=== PATIENT | male | born 1935 | race Caucasian/White ===

== ENCOUNTER 2016-12-24 07:33 | Inpatient (IN) | payer OTHER ==
[2016-12-24] MEDS ORDERED: ASPIRIN PO STA (08:23)
--- NOTE | 2016-12-24 09:00 | EKG Report ---
Test Performed on : 12/24/2016 07:39:10 AM Test Reason : Chest Pain Blood Pressure : / mmHG Vent. Rate : 117 BPM Atrial Rate : 117 BPM P-R Int : 146 ms QRS Dur : 090 ms QT Int : 342 ms P-R-T Axes : 028 053 -01 degrees QTc Int : 477 ms Sinus tachycardia. Inferior infarct , age undetermined Abnormal ECG When compared with ECG of 20-JUL-2015 12:23, Sinus rhythm. has replaced Junctional rhythm. QRS duration has increased ST no longer depressed in Anterior leads Unconfirmed Result
--- NOTE | 2016-12-24 09:15 | PROVIDER DOCUMENTATION ---
HPI-Chest Pain - General Chief Complaint: Chest Pain Stated Complaint: cp Time Seen by Provider: 12/24/16 09:04 Source: patient, family Allergies/Adverse Reactions: Patient Allergies Allergy/AdvReac Type Severity Reaction Status Date / Time codeine Allergy Intermediate VOMITING Verified 09/08/16 23:48 Home Medications: Clonazepam [Klonopin] 1 mg PO HS 12/24/16 Dexchlorpheniramin/Pseudoephed [Rescon Tablet] 1 dose PO BID 12/24/16 Ezetimibe/Simvastatin [Vytorin 10-40 mg Tablet] 1 dose PO EVERY OTHER DAY Famotidine [Pepcid] 20 mg PO EVERY OTHER DAY 12/24/16 Filgrastim [Neupogen] 1 dose INJ DIRECTED 12/24/16 Fluoxetine [Prozac] 20 mg PO DAILY 12/24/16 Furosemide [Lasix] 40 mg PO DAILY 12/24/16 Lorazepam 1 mg PO TID PRN 12/24/16 Metoprolol [Lopressor] 25 mg PO DAILY 12/24/16 Potassium Chloride E.r. [Klor-Con] 10 meq PO DAILY 12/24/16 Pregabalin [Lyrica] 150 mg PO BID 12/24/16 Rizatriptan [Maxalt] 10 mg PO PRN PRN 12/24/16 Sitagliptin Phos/Metformin HCl [Janumet 50-500 mg Tablet] 1 dose PO DAILY Zolpidem [Ambien] 10 mg PO HS 12/24/16 - History of Present Illness-CP Nature of Presenting Problem: Reports to er with family at bedside with cc of left sided chest pain upon inspiration x3 days with cough. Reports coughing up blood. reports pt has epistaxis on friday and a squeezing sensation to his head. Reports went to Dr.Jeff De Guzman yesterday had a low grade fever of 99.2 and states CXray showed no acute findings. Reports went to the bathroom this morning and reports that pt was not responding to her and he grabbed ahold of the bar and started to lean. She reports a possible TIA. Pt is on home o2 4lpm at night but family reports past few days he has has low o2 sats during the day. Pt sees for Neutropenia. Hx of bronchitis and pneumonia. Location: reports: other (left) Quality of Pain: reports: aching Severity in ED: moderate Onset/Duration: 3 days ago Timing: still present Nitro Today/Relief: no nitro taken today Aspirin Treatment Today: no aspirin today Similar Symptoms Previously?: No Recently Seen Here or By Another Healthcare Provider: Yes Review of Systems - Adult - REVIEW OF SYSTEMS - ADULT Constitutional: reports: fever. denies: chills, fatique Eyes: reports: no symptoms reported Ears, Nose, Mouth & Throat: reports: see HPI. denies: ear pain, sinus problem, throat pain Cardiovascular: reports: chest pain. denies: irregular heart rate, orthopnea, syncope Respiratory: reports: cough. denies: pleurisy, shortness of breath, wheezing Gastrointestinal: reports: no symptoms reported Genitourinary: reports: no symptoms reported Musculoskeletal: reports: no symptoms reported Integumentary: reports: no symptoms reported Neurological: reports: see HPI Psychiatric: reports: no symptoms reported Endocrine: reports: no symptoms reported Hematologic/Lymphatic: reports: no symptoms reported Allergic/Immunologic: reports: no symptoms reported All Other Systems: Reviewed and Negative Past History - Adult - PAST MEDICAL HISTORY-ADULT Review of Records: reports: Nursing Assessment Review, Medications Reviewed Major Childhood Illnesses: reports: denies history Cardiovascular: reports: HTN Respiratory: reports: denies history Gastrointestinal: reports: denies history Obstetrical/Gynecological: reports: denies history Genitourinary: reports: denies history Musculoskeletal: reports: denies history Neurological: reports: Parkinson's, other (neuropathy) Psychiatric: reports: anxiety Endocrine/Immune: reports: Diabetes, other (neutrapena) Other Conditions: reports: denies history - PRIOR SURGERIES/PROCEDURES Surgical/Procedure History: reports: cholecystectomy, other (TURP) - IMMUNIZATION STATUS Childhood Immunizations: See Nurse Assessment Flu Vaccine: See Nurse Assessment - FAMILY HISTORY Family History: reviewed, not pertinent - SOCIAL HISTORY Smoking: denies Substance Use: none/never Physical Exam-General - PHYSICAL EXAM-ADULT Initial Vital Signs Reviewed: Yes - CONSTITUTIONAL General Appearance: appears well, alert, no apparent distress - EYES Eyes: PERRL/EOMI, pink conjunctivae - HEAD, EARS, NOSE, MOUTH & THROAT HENMT: normocephalic/atraumatic, moist mucous membranes, normal ENT inspection, TMs normal, pharynx normal - NECK Neck: non-tender, full range of motion, supple, normal inspection - RESPIRATORY Respiratory: chest non-tender, decreased breath sounds (right base) - CARDIOVASCULAR Cardiovascular: normal peripheral pulses, regular rate, rhythm, no edema, no gallop, no JVD, no murmur - GASTROINTESTINAL (ABDOMEN) Abdominal Exam: normal bowel sounds, non tender, soft, no organomegaly, no pulsatile mass - LYMPHATIC Lymphatic: no adenopathy - MUSCULOSKELETAL Back Exam: normal inspection, no CVA tenderness, no vertebral tenderness Extremity: normal range of motion, non-tender, normal gait - SKIN Integumentary: normal color, normal turgor, warm/dry - NEUROLOGIC Neurologic: grossly normal, no motor/sensory deficits - PSYCHIATRIC Psych/Mental Status: normal mood/affect, normal thought content, normal thought process, oriented x 3 Progress - PLAN OF CARE/RESULTS Progress/Plan/Lab Results: Orders Category Date Time Status Cardiac Monitoring DIRECTED Care 12/24/16 08:23 Active Oxygen Therapy- ED Nursing DIRECTED Care 12/24/16 08:23 Active Saline Loc NOW Care 12/24/16 08:23 Active CHEST-2 VIEWS [RAD] Stat Exams 12/24/16 08:23 Draft HEAD W/O CONTRAST [CT] Stat Exams 12/24/16 09:41 Ordered BLOOD CULTURE [BLDCUL] Stat Lab 12/24/16 08:15 Received CBC WITH ELECTRONIC DIFF [HEME] Stat Lab 12/24/16 08:10 Completed CK PROFILE [SP CHEM] Stat Lab 12/24/16 08:10 Received COMPREHENSIVE METABOLIC PANEL [CHEM] Stat Lab 12/24/16 08:10 Received D-DIMER [CHEM] Stat Lab 12/24/16 08:10 Received LACTATE, PLASMA [CHEM] Stat Lab 12/24/16 09:39 Received MAGNESIUM [CHEM] Stat Lab 12/24/16 08:10 Received PRO B-NATRIURETIC PEPTIDE Stat Lab 12/24/16 08:10 Received PROTIME WITH INR [COAG] Stat Lab 12/24/16 08:25 Ordered PTT [COAG] Stat Lab 12/24/16 08:25 Ordered TROPONIN T Stat Lab 12/24/16 08:10 Received Aspirin Med 12/24/16 08:23 Discontinued 325 mg PO STAT STA EKG [EKG] Stat Ther 12/24/16 08:23 Draft Vital Signs - 24 hr 12/24/16 12/24/16 12/24/16 07:47 08:26 08:53 Temperature 99.2 F Pulse Rate 117 H 115 H Respiratory 16 18 Rate Blood Pressure 106/74 115/79 O2 Sat by Pulse 89 L 97 95 Oximetry Laboratory Tests 12/24/16 08:10 WBC 22.26 H RBC 4.70 Hgb 13.9 L Hct 42.0 MCV 89.4 MCH 29.6 MCHC 33.1 RDW Std Deviation 14.9 H Plt Count 108 L MPV 12.7 H Immature Gran % (Auto) 2.0 H Neut % (Auto) 42.3 Lymph % (Auto) 10.1 L Irwin % (Auto) 45.4 H Eos % (Auto) 0.1 Baso % (Auto) 0.1 Immature Gran # (Auto) 0.44 H Neut # (Auto) 9.41 H Lymph # (Auto) 2.25 Irwin # (Auto) 10.10 H Eos # (Auto) 0.03 Baso # (Auto) 0.03 Laboratory Tests 12/24/16 12/24/16 12/24/16 08:10 08:10 08:10 WBC 22.26 H RBC 4.70 Hgb 13.9 L Hct 42.0 MCV 89.4 MCH 29.6 MCHC 33.1 RDW Std Deviation 14.9 H Plt Count 108 L MPV 12.7 H Immature Gran % (Auto) 2.0 H Neut % (Auto) 42.3 Lymph % (Auto) 10.1 L Irwin % (Auto) 45.4 H Eos % (Auto) 0.1 Baso % (Auto) 0.1 Immature Gran # (Auto) 0.44 H Neut # (Auto) 9.41 H Lymph # (Auto) 2.25 Irwin # (Auto) 10.10 H Eos # (Auto) 0.03 Baso # (Auto) 0.03 PT INR PTT (Actin FS) D-Dimer 2.80 H Sodium 138 Potassium 4.3 Chloride 98 Carbon Dioxide 23 L Anion Gap 17 BUN 13 Creatinine 1.5 H Estimated GFR/1.73 m2 45 BUN/Creatinine Ratio 9 Glucose 112 H Calculated Osmolality 277 Calcium 8.7 L Magnesium 1.6 Total Bilirubin 0.73 AST 15 ALT 9 L Alkaline Phosphatase 95 Creatine Kinase 39 Troponin T Rsf-E-Gdgthwilivf Pept Total Protein 8.0 Albumin 3.9 Globulin 4.1 Albumin/Globulin Ratio 1.0 Plasma Lactate 01/24/17 01/24/17 01/24/17 08:10 08:10 08:25 WBC RBC Hgb Hct MCV MCH MCHC RDW Std Deviation Plt Count MPV Immature Gran % (Auto) Neut % (Auto) Lymph % (Auto) Irwin % (Auto) Eos % (Auto) Baso % (Auto) Immature Gran # (Auto) Neut # (Auto) Lymph # (Auto) Irwin # (Auto) Eos # (Auto) Baso # (Auto) PT 12.0 H INR 1.13 PTT (Actin FS) 33.5 D-Dimer Sodium Potassium Chloride Carbon Dioxide Anion Gap BUN Creatinine Estimated GFR/1.73 m2 BUN/Creatinine Ratio Glucose Calculated Osmolality Calcium Magnesium Total Bilirubin AST ALT Alkaline Phosphatase Creatine Kinase Troponin T 0.018 Mop-S-Vdbiwfvvrxv Pept 1239 H Total Protein Albumin Globulin Albumin/Globulin Ratio Plasma Lactate 12/24/16 09:39 WBC RBC Hgb Hct MCV MCH MCHC RDW Std Deviation Plt Count MPV Immature Gran % (Auto) Neut % (Auto) Lymph % (Auto) Irwin % (Auto) Eos % (Auto) Baso % (Auto) Immature Gran # (Auto) Neut # (Auto) Lymph # (Auto) Irwin # (Auto) Eos # (Auto) Baso # (Auto) PT INR PTT (Actin FS) D-Dimer Sodium Potassium Chloride Carbon Dioxide Anion Gap BUN Creatinine Estimated GFR/1.73 m2 BUN/Creatinine Ratio Glucose Calculated Osmolality Calcium Magnesium Total Bilirubin AST ALT Alkaline Phosphatase Creatine Kinase Troponin T Pyq-Z-Kwdmmbzzwao Pept Total Protein Albumin Globulin Albumin/Globulin Ratio Plasma Lactate 1.4 Laboratory Tests 12/24/16 12/24/16 12/24/16 08:10 08:10 08:10 WBC 22.26 H RBC 4.70 Hgb 13.9 L Hct 42.0 MCV 89.4 MCH 29.6 MCHC 33.1 RDW Std Deviation 14.9 H Plt Count 108 L MPV 12.7 H Immature Gran % (Auto) 2.0 H Neut % (Auto) 42.3 Lymph % (Auto) 10.1 L Irwin % (Auto) 45.4 H Eos % (Auto) 0.1 Baso % (Auto) 0.1 Immature Gran # (Auto) 0.44 H Neut # (Auto) 9.41 H Lymph # (Auto) 2.25 Irwin # (Auto) 10.10 H Eos # (Auto) 0.03 Baso # (Auto) 0.03 PT INR PTT (Actin FS) D-Dimer 2.80 H Sodium 138 Potassium 4.3 Chloride 98 Carbon Dioxide 23 L Anion Gap 17 BUN 13 Creatinine 1.5 H Estimated GFR/1.73 m2 45 BUN/Creatinine Ratio 9 Glucose 112 H Calculated Osmolality 277 Calcium 8.7 L Magnesium 1.6 Total Bilirubin 0.73 AST 15 ALT 9 L Alkaline Phosphatase 95 Creatine Kinase 39 Troponin T Dfs-M-Vfnpsiygfsh Pept Total Protein 8.0 Albumin 3.9 Globulin 4.1 Albumin/Globulin Ratio 1.0 Plasma Lactate 12/24/16 12/24/16 12/24/16 08:10 08:10 08:25 WBC RBC Hgb Hct MCV MCH MCHC RDW Std Deviation Plt Count MPV Immature Gran % (Auto) Neut % (Auto) Lymph % (Auto) Irwin % (Auto) Eos % (Auto) Baso % (Auto) Immature Gran # (Auto) Neut # (Auto) Lymph # (Auto) Irwin # (Auto) Eos # (Auto) Baso # (Auto) PT 12.0 H INR 1.13 PTT (Actin FS) 33.5 D-Dimer Sodium Potassium Chloride Carbon Dioxide Anion Gap BUN Creatinine Estimated GFR/1.73 m2 BUN/Creatinine Ratio Glucose Calculated Osmolality Calcium Magnesium Total Bilirubin AST ALT Alkaline Phosphatase Creatine Kinase Troponin T 0.018 Emh-I-Vildhgwhotg Pept 1239 H Total Protein Albumin Globulin Albumin/Globulin Ratio Plasma Lactate 12/24/16 09:39 WBC RBC Hgb Hct MCV MCH MCHC RDW Std Deviation Plt Count MPV Immature Gran % (Auto) Neut % (Auto) Lymph % (Auto) Irwin % (Auto) Eos % (Auto) Baso % (Auto) Immature Gran # (Auto) Neut # (Auto) Lymph # (Auto) Irwin # (Auto) Eos # (Auto) Baso # (Auto) PT INR PTT (Actin FS) D-Dimer Sodium Potassium Chloride Carbon Dioxide Anion Gap BUN Creatinine Estimated GFR/1.73 m2 BUN/Creatinine Ratio Glucose Calculated Osmolality Calcium Magnesium Total Bilirubin AST ALT Alkaline Phosphatase Creatine Kinase Troponin T Ozo-J-Mrviwxohfbi Pept Total Protein Albumin Globulin Albumin/Globulin Ratio Plasma Lactate 1.4 angiogram was done due to sob and elevated d-dimer 1342 Hospitalist paiged - EKG 1 Time of EKG reading by physician:: 07:39 EKG Read and Signed by:: Abdifatah Lynn EKG Interpretation (*Must complete 3 of following elements*): Abnormal ( inferior infarct age undetermined) Rate: 117 Rhythm: sinus tach - XRAY 1 XRAY: Bilateral XRAY Study: Chest Impression: Abnormal (Borderline mildly prominent heart otherwise negative.) - CT/MRI 1 CT Study: Head Impression: Normal CT Results: nad 2 CT Study: Angiogram Impression: Abnormal (No Pe; Pulmonary edema; Bilateral small Pleural effusions Moderate pericardial effusion.) - CONSULTS/PCP/HOSPITALIST Notification #1 *Consult/PCP/Hospitalist*: Time Discussed: 13:58 Consult Disposition: Admit, other ( Discussed with MD Muse that pt is on Metformin and it needs to held.) Departure - Departure Time of Disposition Order: 10:50 DIAGNOSIS: SOB (shortness of breath), Pre-syncope Disposition: ADMITTED INPATIENT 09 Certified Medical Emergency: Emergent Condition: Stable Referrals: Surya De Guzman DO [Primary Care Provider] - Attestation - Scribe Verification/Attestation Scribe:: Js Chance Acting as Scribe for:: Abdifatah Lynn Scribe documention review:: This chart was documented by a scribe and accurately reflects the service the provider performed and the decisions made by the provider.
--- NOTE | 2016-12-24 09:27 | Diag Imaging Result Document ---
PROCEDURE NAME: CHEST-2 VIEWS - 12/24/2016 FRONTAL AND LATERAL CHEST, TWO VIEWS: FINDINGS: Poor inspiratory effort. The heart is borderline mildly prominent although this a sitting AP exam. The vessels are not distended. No pleural effusions. No pneumonia. No free air beneath the diaphragm. IMPRESSION: Borderline mildly prominent heart, otherwise negative exam.
[2016-12-24 09:46] LABS: BASO% 0.1 % (0.0-0.8); EOS# 0.03 X1000 (0.0-0.7); EOS% 0.1 % (0.0-10.0); HEMOGLOBIN 13.9 g/dL (14.0-18.0); IMM GRAN# 0.44 X1000 (0.0-0.04); LYMPH# 2.25 X1000 (1.2-3.4); LYMPH% 10.1 % (20.5-51.1); MANUAL DIFF NEEDED? NO; MCH 29.6 PG (27-31); MCHC 33.1 g/dL (33-37); MCV 89.4 FL (81-99); MONO% 45.4 % (1.7-9.3); MPV 12.7 FL (7.4-10.4); NEUT% 42.3 % (42.2-75.2); PLT 108 X1000 (130-400)
[2016-12-24 09:58] LABS: INR 1.13; PTT 33.5 Seconds (22.0-36.0)
[2016-12-24 10:03] LABS: ALBUMIN 3.9 g/dL (3.5-5.0); CALCIUM 8.7 mg/dL (8.8-10.2); MAGNESIUM 1.6 mg/dL (1.5-2.7); POTASSIUM 4.3 mmol/L (3.5-5.1); TOTAL BILIRUBIN 0.73 mg/dL (0.20-1.00)
--- NOTE | 2016-12-24 11:01 | Diag Imaging Result Document ---
PROCEDURE NAME: HEAD W/O CONTRAST - 12/24/2016 CT OF THE HEAD WITHOUT CONTRAST: FINDINGS: There is no evidence of mass effect, bleed, or abnormal extraaxial fluid collection. There is generalized cerebral atrophy. Some periventricular white matter lucency is present around the frontal horns, and there is a small lacune in the area of the posterior limb of the internal capsule on the right. Compared to 09/08/2016, these findings have not changed. IMPRESSION: Chronic microvascular changes. No evidence of acute disease.
--- NOTE | 2016-12-24 13:34 | Diag Imaging Result Document ---
PROCEDURE NAME: ANGIOGRAM/PULMONARY ARTERIES - 12/24/2016 CTA CHEST WITHOUT CONTRAST: COMPARISON: 07/20/2015. FINDINGS: There is no evidence of pulmonary embolism. There is mild aortic atherosclerotic calcification. There is no evidence of aortic aneurysm or dissection. There is cardiomegaly and a moderate-sized pericardial effusion. There are small shotty mediastinal lymph nodes that are nonspecific and are similar to the previous study. There are bilateral small pleural effusions, and there is subsegmental atelectasis bilaterally. There are interstitial and airspace opacities bilaterally with a basilar predominance suggesting pulmonary edema. IMPRESSION: 1. No evidence of pulmonary embolism. 2. Cardiomegaly and evidence of pulmonary edema. 3. Moderate-sized pericardial effusion. 4. Small bilateral pleural effusions with bilateral dependent atelectasis.
[2016-12-24] MEDS ORDERED: NS NEB INH SCH (14:15)
[2016-12-24 14:33] LABS: ALLEN TEST YES; BE -0.7 mmoll (-3.0-3.0); BLOOD TYPE ARTERIAL; DRAW SITE R RADIAL; METHB 1.5 % (0.0-1.5); O2(CT) 16.5 mL/dL (15.0-23.0); PCO2(98.6) 40 mmHg (35-45); PO2(98.6) 82 mmHg (60-100); SAMPLE BLOOD; THB 12.4 g/dL (11.5-17.4); pH(98.6) 7.39 (7.35-7.45)
[2016-12-24 14:34] LABS: MODALITY CANNULA
[2016-12-24] MEDS ORDERED: DUONEB (A & A) INH PRN (15:12)
[2016-12-24] MEDS ORDERED: DUONEB (A & A) INH SCH (15:30)
[2016-12-24] MEDS ORDERED: ROCEPHIN 1 GM/NS 50 ML IV SCH (16:00)
[2016-12-24] MEDS: XOPENEX NEB INH SCH ×2 (16:00→22:00)
[2016-12-24] MEDS: HUMULIN R SUBQ SCH ×2 (16:00→21:00)
--- NOTE | 2016-12-24 16:43 | CONSULTATION ---
DATE OF CONSULTATION: 12/27/2016 INDICATION: Pericardial effusion. HISTORY OF PRESENT ILLNESS: Mr. Joaquin is an 81-year-old white male who came in with complaints of fatigue/weakness today. This apparently has been going on for around a week or so but the patient is a somewhat difficult historian. Apparently got up around 5 or 5:30 this morning and due to weakness and having to use a walker, his assisted him to the restroom. He apparently used the restroom and attempted to stand back up but got quite weak and apparently had to lean against the wall. It does not seem like there was any overt syncope but he did end up on the floor it sounds like. eventually had to call EMS who came out and brought the patient in for evaluation. He apparently saw Dr. Mark Anthony De Guzman yesterday and there was a concern for what I believe was a possible pneumonia and he was initiated on Levaquin. The patient has had some pleuritic type chest discomfort. No exertional chest discomfort. He reports temperatures up to 99.2 but no overt severe fevers. There has been some cough but the patient is not aware of any productive type sputum. PAST MEDICAL HISTORY: 1. Suggests possible diastolic heart failure. He was told on previous admissions I believe to [facility] that he had some fluid on his lungs. He does see Dr. Ramirez at [facility]. 2. Hypertension. 3. Hyperlipidemia. 4. Chronic neutropenia in which he follows with Dr. Phyllis Mayen. SOCIAL HISTORY: He lives at home with his . No apparent tobacco use. FAMILY HISTORY: Hypertension. REVIEW OF SYSTEMS: A 10 system review of systems is negative except for those things mentioned in the HPI. PHYSICAL EXAMINATION: The patient is afebrile. His heart rate has been in the low 100s. His blood pressure is 116/74. He did seem to be tilt positive. His standing blood pressure was 83/61. His supine was 116/74. His heart rates were all in the 100s up to 120. General: He is in no acute distress. HEENT: Oropharynx is moist. He has normal dentition. Eye examination shows pink conjunctivae and white sclerae. Neck: Examination shows no obvious thyromegaly or thyroid tenderness. Cardiovascular: He sounds to be in a regular rate and rhythm. He has no obvious murmurs. There is no S3. He has no lower extremity edema. Chest: Relatively clear. He had poor inspiratory effort. Abdomen: Soft, nontender, nondistended. He has no obvious organomegaly. Skin Exam: Warm and dry throughout without any rashes. Neurological: He seems to be moving all extremities well. No obvious lateralizing defects. PERTINENT DATA: His EKG shows sinus tach, rate of 117 beats per minute. His white count is 22.2. His hematocrit is 42. His platelet count is 108,000. He did not have a left shift. His D-dimer was 2.8. His INR is 1.1. His ABG has a pH of 7.39, pCO2 of 40, PO2 of 82. His sodium is 138, potassium 4.3. His BUN is 13, creatinine is 1.5. His proBNP is 1,239. Troponin initially was negative. His CT PE protocol shows no evidence of embolism, cardiomegaly with evidence of pulmonary edema. Moderate-sized pericardial effusion. Small bilateral pleural effusions with dependent atelectasis. His echo was reviewed by me and seemed to demonstrate a normal ejection fraction with a small circumferential pericardial effusion that did not seem to demonstrate any evidence of tamponade physiology. CT of his head shows chronic microvascular changes. ASSESSMENT: 1. Small pericardial effusion. 2. Likely pneumonia. PLAN: Patient is on antibiotics. I will initiate colchicine 0.6 b.i.d. Likely the pericardial effusion is reactive to the pneumonia. I will check a TSH. We will likely consider rechecking an echo on 4-6 weeks.
--- NOTE | 2016-12-24 16:47 | HISTORY AND PHYSICAL ---
PRIMARY CARE PHYSICIAN: Dr. Mark Anthony De Guzman. CHIEF COMPLAINT: Syncope. HISTORY OF PRESENT ILLNESS: Mr. Joaquin is an 81-year-old, male with a history of Parkinson disease, lymphoma and leukopenia, as well as type 2 diabetes, who presents today with apparent syncopal episode earlier this morning. Patient has actually been complaining of bronchitis and upper respiratory type symptoms that began over the holidays. He was placed on antibiotics for that at that time. However he has continued to have occasional shortness of breath and cough at times. On Friday he began to have a nosebleed and was spitting up blood and saw his primary care provider, Dr. De Guzman, yesterday. He put the patient on antibiotics again for bronchitis, however, this morning while the patient was on the commode his said he had an apparent syncopal episode. He was sitting there and his was talking to him and he apparently went out and was not responsive to her verbal stimulus. At that time, 911 was called. Once 911 arrived at their home they were able to wake the patient up with loud verbal stimulus. He got to the ER today, laboratory data shows a leukocytosis with thrombocytopenia however , he received a Neulasta injection around a week ago. He has not have any recent fevers or chills. He does report that he has been having what appears to be a midsternal type chest pain with shortness of breath. He says that the chest pain is worse with inspiration. He denies any radiating qualities. He denies any lower extremity edema or orthopnea. In the ER a D- dimer was found to be elevated and a CTA was done which was subsequently negative for PE but was consistent with moderate pericardial effusion as well as bilateral pleural effusions. On physical exam, the patient does not have any overt focal deficits, he is oriented but at times he does take his time answering questions. We are going to now admit him for syncope and chest pain. PAST MEDICAL HISTORY: 1. Parkinson disease. 2. Lymphoma involving the bone marrow. 3. Leukopenia. 4. Type 2 diabetes. 5. Questionable episode of malignant hyperthermia last year at [facility]. 6. Questionable history of TIAs. SURGICAL HISTORY: Left hip arthroplasty, back surgery, cholecystectomy, TURP. SOCIAL HISTORY: Patient denies tobacco, alcohol, or drug use. Is . He lives in [place]. His at the bedside. FAMILY HISTORY: Noncontributory. ALLERGIES: To codeine. HOME MEDICATIONS: 1. Klonopin 1 mg at bedtime. 2. Sudafed as needed. 3. Vytorin. 4. Pepcid 20 mg every other day. 5. Neupogen as directed. 6. Prozac 20 mg daily. 7. Lasix 40 mg daily. 8. Ativan 1 mg p.o. 3 times daily as needed. 9. Lopressor 25 mg daily. 10. Klor-Con 10 mEq p.o. daily. 11. Lyrica 150 mg p.o. twice daily. 12. Maxalt 10 mg as needed. 13. Sitagliptin metformin 1 daily. 14. Ambien 10 mg at bedtime. REVIEW OF SYSTEMS: Ten point review of systems obtained by me and negative with the exception of the HPI. PHYSICAL EXAMINATION: VITAL SIGNS: Blood pressure is 114/77, heart rate 105, respiratory rate 18, O2 saturation 95% on 2 L nasal cannula. Temperature is 99.2 degrees. GENERAL: This is an elderly male, lying in hospital bed, in no acute distress. NEUROLOGIC: The patient is awake and alert. He does follow commands without focal deficits. HEENT: Head is atraumatic, normocephalic. His pupils are equal, round, and reactive to light. Oral mucosa is a bit dry. Trachea is midline. CHEST: Diminished at the bases but otherwise clear to auscultation bilaterally. CV: Regular rate and rhythm. S1-S2 is noted. GI: Soft, nondistended, nontender. Bowel sounds positive. EXTREMITIES: Without edema, clubbing or cyanosis. Pulses are palpable but diminished bilaterally. DIAGNOSTIC DATA: Pulmonary arteriogram shows no evidence of PE, cardiomegaly, and evidence of pulmonary edema, moderate size pericardial effusion, small bilateral pleural effusions with bilateral dependent atelectasis. A head CT shows nothing acute, chronic changes are noted. Chest x-ray shows borderline mildly prominent heart, otherwise negative exam. WBC 22.26, hemoglobin 13.9, hematocrit 42, platelet count 108,000, PT 12, INR 1.13, D-dimer 2.8. ABG within normal limits. Sodium 138, potassium 4.3, chloride 98, CO2 23, anion gap 17, BUN 13, creatinine 1.5, glucose 112, calcium 8.6, magnesium 1.6 bilirubin 0.73, ALT 9, alkaline phosphatase 95, troponin negative. ProBNP 1239. Albumin 3.9. Lactate is 1.4. ASSESSMENT AND PLAN: 1. Syncope: Unclear as to the etiology, we are going to check carotids, echo, and rule out myocardial infarction, and monitor telemetry. We will check neuro status every 4 hours overnight. 2. Chest pain: Atypical, likely noncardiac in nature given his symptoms. He does have a pericardial effusion so we will rule out pericarditis, we will rule out myocardial infarction with cardiac enzymes. We will check an echocardiogram, and we will treat the patient for bronchitis/early pneumonia. 3. Early pneumonia/bronchitis: Blood cultures have been obtained and we will start Rocephin for now and recheck a chest x-ray in the morning. 4. Pericardial effusion: An echo has been ordered and Cardiology has been consulted. He may need colchicine and/or steroids versus NSAIDs. However colchicine would probably be the better option given his mild renal failure. 5. Acute kidney injury: Will check urine studies and treat appropriately. Clinically the patient is slightly dry, but he does have what seems to be mild congestive heart failure, so we will be cautious with our IV fluids. 6. History of lymphoma and leukopenia: This appears to be chronic and stable, he does have leukocytosis but this is likely secondary to Neupogen, blood cultures have been obtained and we are adding Rocephin for now. 7. Type 2 diabetes: Check a hemoglobin A1c and thyroid function as well as add pattern blood sugars sliding scale insulin and hold his oral antidiabetics. 8. We will add Lovenox for deep venous thrombosis prophylaxis and continue his famotidine for gastrointestinal prophylaxis. Further recommendations to follow. Dictated by JERRELL Garland for Alix Da Silva MD the patient was seen and examined by me. I agree with the assessment and plan as dictated. DORA
[2016-12-24 18:19] LABS: URINE CULTURE NEEDED? NO; URINE MICRO REVIEW NEEDED? NO; URINE SOURCE CLEAN CATCH
[2016-12-24 18:23] LABS: BILIRUBIN URINE NEGATIVE (NEGATIVE); BLOOD URINE TRACE (NEGATIVE); COLOR YELLOW; GLUCOSE URINE NEGATIVE (NEGATIVE); LEUKOCYTES URINE NEGATIVE (NEGATIVE); NITRITE URINE NEGATIVE (NEGATIVE); PH URINE 5.5; PROTEIN URINE 50 mg/dL (NEGATIVE); TURBIDITY URINE CLEAR (CLEAR); UR EPITHELIAL CELLS <10 /HPF (<10); URINE BACTERIA NEGATIVE /HPF; URINE RBC <10 /HPF (<10); URINE WBC <10 /HPF (<10); UROBILINOGEN URINE NORMAL (NORMAL)
--- NOTE | 2016-12-24 18:28 | ECHO REPORT ---
ORDER DATE: 12/24/2016 INTERPRETING PHYSICIAN: Dr. Monge CLINICAL INDICATIONS: [id number] male, incidental finding of pericardial effusion on CT scan of the chest. Evaluate significance. M-MODE MEASUREMENTS: Right ventricle: 2.3 cm. Left ventricle end diastole: 4.3 cm. Left ventricle end systole: 2.7 cm. Posterior wall: 0.9 cm. Interventricular septum: 0.9 cm. Left atrium: 4.6 cm. Aortic root: 3.3 cm. SUMMARY OF 2-DIMENSIONAL IMAGING: The left ventricular function appears to be normal, ejection fraction 68%. The chamber appears to be moderately enlarged. The right ventricle is not dilated. The aortic valve shows calcification of the cusps. Color flow mapping shows no regurgitation. Continuous wave Doppler across the outflow tract of the left ventricle shows a maximum gradient of 28 mmHg. Mean gradient is 15 mmHg. That would be consistent with mild degree of aortic stenosis. The continuity equation yields a valve area of 1.3 cm2, which would be more in the moderate range. The pulmonic valve shows mild degree of regurgitation. The inferior vena cava was not visualized. The tricuspid valve shows mild degree of regurgitation. The pulmonary pressure is somewhere in the range of 36 mmHg. Mitral valve opens normally. There is thickening of the annulus and calcification of the leaflets. Color flow mapping shows trace regurgitation. Pulse wave Doppler of mitral inflow shows reversal of the E and the A wave. Tissue Doppler of septal and lateral mitral annulus averages 5 cm. There is impaired left ventricular relaxation. The pulse wave Doppler of pulmonary venous flow is normal. There is a small to no more than moderate pericardial effusion. It does not cause any tamponade physiology. The degree is probably closer to small rather than moderate. The left atrium is probably mildly enlarged. SUMMARY: In summary, this study showed: 1. Normal left ventricular systolic function, ejection fraction 68%. Moderately enlarged left ventricular chamber. 2. Mild to moderate aortic stenosis. Mean gradient is 15 mmHg with valve area of 1.3 cm2. 3. Impaired left ventricular relaxation. 4. Moderate calcification of mitral annulus. 5. Borderline pulmonary hypertension, estimated at 36 mmHg. 6. A small to no more than moderate pericardial effusion. No evidence of any tamponade-type of physiology. 7. Clinical correlation recommended.
[2016-12-24] MEDS ORDERED: MAXALT PO PRN (18:54)
[2016-12-24] MEDS ORDERED: ATIVAN PO PRN (18:54)
[2016-12-24 19:26] LABS: UR CREAT RANDOM 129.5 mg/dL (14-26)
[2016-12-24 19:46] LABS: HEMOGLOBIN A1C 4.9 % (4.8-6.0)
[2016-12-24 20:02] LABS: IRON SATURATION 10 %; TIBC 155 ug/dL; TOTAL IRON 15 ug/dL (53-167); UNBOUND IRON 140 ug/dL (112-346)
[2016-12-24 20:10] LABS: FREE T4 0.83 ng/dL (0.93-1.70)
[2016-12-24] MEDS: COLCRYS PO SCH (21:35)
[2016-12-24] MEDS: MERREM 500 MG in NS 50 ML IV SCH (21:40)
[2016-12-25] MEDS: KLONOPIN PO SCH ×2 (00:15→21:31)
[2016-12-25] MEDS: AMBIEN PO SCH ×2 (00:15→21:31)
[2016-12-25] MEDS: MERREM 500 MG in NS 50 ML IV SCH ×3 (04:44→18:01)
[2016-12-25 05:27] LABS: EOS# 0.02 X1000 (0.0-0.7); EOS% 0.1 % (0.0-10.0); HEMATOCRIT 37.5 % (42.0-52.0); HEMOGLOBIN 12.6 g/dL (14.0-18.0); IMM GRAN# 0.23 X1000 (0.0-0.04); IMM GRAN% 1.1 % (0.0-0.5); LYMPH# 1.13 X1000 (1.2-3.4); LYMPH% 5.5 % (20.5-51.1); MANUAL DIFF NEEDED? YES; MCH 29.9 PG (27-31); MCHC 33.6 g/dL (33-37); MCV 88.9 FL (81-99); MONO% 44.7 % (1.7-9.3); MPV 12.2 FL (7.4-10.4); NEUT% 48.6 % (42.2-75.2); PLT 74 X1000 (130-400); RBC 4.22 XMIL (4.7-6.1)
[2016-12-25 05:42] LABS: CALCIUM 8.1 mg/dL (8.8-10.2); POTASSIUM 3.8 mmol/L (3.5-5.1)
[2016-12-25] MEDS: HUMULIN R SUBQ SCH ×4 (06:19→21:32)
[2016-12-25 07:20] LABS: BANDS 2 % (0-1); LYMPHS 7 % (21-51); MONO 24 % (1-9)
[2016-12-25] MEDS: COLCRYS PO SCH ×2 (10:56→21:31)
[2016-12-25] MEDS: PROZAC PO SCH (10:56)
[2016-12-25] MEDS: LOVENOX SUBQ SCH (10:56)
[2016-12-25] MEDS ORDERED: LASIX IV ONE (11:20)
--- NOTE | 2016-12-25 13:34 | CONSULTATION ---
DATE OF CONSULTATION: 12/25/2016 REQUESTING PHYSICIAN: Dr. Da Silva. REASON FOR CONSULTATION: Leukocytosis. Patient known. HISTORY OF PRESENT ILLNESS: Mr. Joaquin is a pleasant, 81-year-old male who is known to us as we currently follow him for leukopenia, who presented to [facility] via ambulance after having a syncopal episode at home while on the commode. Per the patient's who is with him at bedside, the patient had been having some coughing. He had bronchitis around [place] and had actually been started on p.o. Levaquin the day before he was admitted to the hospital. His family physician, Dr. Surya De Guzman, saw the patient and start him on the antibiotic due to him having currently purulent sputum with streaks of blood. Upon presentation, the patient was found to have leukocytosis. A CT angio revealed the patient to have a moderate pericardial effusion as well as some bilateral pleural effusions. The patient has also had some confusion. It appears that there is a question of whether or not he may have had a small stroke. The patient's reports that he had bilateral carotid Dopplers performed in the ER. We have been consulted due to his leukocytosis, anemia, and thrombocytopenia. PAST MEDICAL HISTORY: 1. Parkinson disease. 2. History of lymphoma and leukopenia. 3. Type 2 diabetes mellitus. 4. Possible TIAs. 5. Possible malignant hypothermia. PAST SURGICAL HISTORY: 1. Left total hip replacement. 2. Previous back surgery. 3. Cholecystectomy. 4. TURP. SOCIAL HISTORY: Patient lives with his . He does not use any alcohol, drugs, or tobacco. REVIEW OF SYSTEMS: As per the HPI. All else is either negative or noncontributory. PHYSICAL EXAMINATION: Vital Signs: Temperature 99.6 degrees, heart rate is 120, respirations 16, blood pressure 125/75, O2 saturation 98% on 2.5 L nasal cannula. General: male, lying in the hospital bed, in no acute distress. He does seem altered in regards to his mental status. Questions are primarily answered by his . HEENT: Head appears to be normocephalic, atraumatic. Eyes: Pupils are equal, round, and reactive. Ears, nose, throat, neck, and mouth: Oral mucosa is normal. Gross auditory acuity does appear to be intact as he does answer to his name. Cardiovascular: Tachycardia noted. No irregular rhythm noted. Respiratory: Essentially clear to auscultation bilaterally. Normal respiratory effort anteriorly. Gastrointestinal: Abdomen is soft, nondistended. Positive bowel sounds. Musculoskeletal: No bony abnormalities noted. Extremities: There is no cyanosis, clubbing, or edema noted in bilateral lower extremities or upper extremities. Neurologic: Patient is alert. He is oriented to place and self at least. He is able to follow commands. Bilateral lower extremity strength is equal and adequate. LABS AND STUDIES: CT angio as noted above. The patient also had a head CT which was negative. Echocardiogram reveals an ejection fraction of 60%. He has a small, no more than moderate pericardial effusion. No evidence of tamponade. The reports for the carotid Dopplers is not in the computer system at this time. LABORATORY: White blood cells 20.38, hemoglobin 12.6, hematocrit 37.5, platelets 74,000. Sodium 133, potassium 3.8, chloride 95, CO2 24, BUN 15, creatinine 1.6, glucose 122, iron 15, saturation percent 10, ferritin 402, folate 7.6. Vitamin B12 is 896. ASSESSMENT AND PLAN: 1. Leukocytosis. Patient does receive weekly Neupogen injections secondary to leukopenia. He receives the injection as long as his ANC is less than 6.0. The patient's last injection was on December 16, 2016. I believe that he probably has an underlying infection as well as the pericardial effusion. He is currently being treated with colchicine. His leukocytosis is likely reactive to both the infection and likely inflammation. Continue to follow and monitor. White count is improved from yesterday when it was 22.26. Continue IV antibiotics. 2. Thrombocytopenia. Patient's platelets range from the 70,000s to the low 100,000s. Platelet count is currently at his baseline. Continue to monitor. 3. Anemia. Patient does have some iron deficiency as well as a folate deficiency. Plan at this time will be for outpatient repletion as his current issues are more significant. 4. Syncope. No further episodes. Head CT is negative as noted above. Carotid Dopplers have been completed but the report is not in the system yet. Follow up. Further recommendations per cardiology and primary team. 5. Chest pain. Cardiology on board and treating the patient's pericardial effusion. He is receiving colchicine. 6. Early pneumonia/previous bronchitis. Patient is currently on IV antibiotics; continue. Continue also nebulizer treatments. 7. Pericardial effusion. Management will continue as per cardiology. We thank you for consulting us and letting us participate in Mr. Joaquin's care while he is at [facility]. Will follow along and adjust his treatment plan per his hospital course. Dictated by MAURICE Ratliff for Phyllis Mayen MD
--- NOTE | 2016-12-25 15:08 | PROGRESS NOTE ---
DATE: 12/25/2016 SUBJECTIVE: Mr. Joaquin reports he is doing better. PHYSICAL: Vital Signs: He has been afebrile. His heart rates have been in the 100-110s lately. Blood pressure 125/75. His telemetry seems to show sinus tachycardia. General: No acute distress. Cardiovascular: Regular rate and rhythm. He has no obvious murmurs. No S3. Chest: Exam is clear bilaterally. He has no increased work of breathing. Abdomen: Soft, nontender, nondistended. No obvious organomegaly. Skin Exam: Warm and dry throughout. PERTINENT DATA: His white count is 20.3, his hematocrit is 37.5, platelet count is 74. He does have a bandemia present. Sodium is 133, potassium 3.8, BUN 15, creatinine 1.6. Cardiac enzymes negative. Echocardiogram was reviewed showing a normal ejection fraction. Mild pericardial effusion with no evidence of tamponade. ASSESSMENT: 1. Pericardial effusion. 2. Pneumonia. PLAN: Have the patient follow up in 6 weeks and at that time, we will plan on checking an echo to re-evaluate the pericardial effusion. I would recommend continuing him on the colchicine for around a 6 week period as well. We will likely discontinue that at the followup appointment. Please contact us with further questions.
--- NOTE | 2016-12-25 16:55 | PROGRESS NOTE ---
DATE: 12/25/2016 SUBJECTIVE: The patient is resting comfortably in bed. He has no complaints at this time. No acute events noted overnight. The patient is tachycardic in the one-teens to one-twenties. OBJECTIVE: Vital signs: Temperature 98.4, blood pressure 125/75, heart rate 120, respirations 16, O2 saturation 98% on 2.5 L nasal cannula. General: This is a chronically ill-appearing elderly male lying in bed in no acute distress. HEENT: Head is normocephalic, atraumatic. Heart: S1 and S2 are normal. Tachycardic. Lungs: Coarse breath sounds bilaterally with crackles. Abdomen: Positive bowel sounds. Soft, nontender, and nondistended. Extremities: No edema. No cyanosis. Neurological: The patient is alert and oriented times 3. LABORATORY DATA: White blood cell count is 20, hemoglobin 12, hematocrit 37, and platelets 74. Sodium is 133, potassium 3.5, chloride 95, CO2 24, BUN 15, creatinine 1.6, and glucose 122. ASSESSMENT AND PLAN: 1. Acute bronchitis versus pneumonia. Continue on IV antibiotic therapy plus bronchodilator therapy and supplemental oxygen. The patient's sputum, gram stain and culture is currently pending. 2. Leukocytosis. Improved. We will continue to monitor this closely. Hematology is also following. 3. Pericardial effusion. There is no evidence of tamponade on the echocardiogram. Cardiology is currently following. 4. Pulmonary edema. We will continue on Lasix and monitor the patient's volume status closely. 5. Chronic thrombocytopenia. We will continue to monitor this closely. Hematology is following. 6. Diabetes mellitus type 2. Continue on sliding scale insulin. 7. Anxiety disorder. Continue on Klonopin at bedtime. 8. Stage 3 chronic kidney disease. Stable. We will continue to monitor this closely. 9. We will consult Physical Therapy.
[2016-12-25] MEDS: XOPENEX NEB INH SCH (20:08)
[2016-12-26] MEDS: MERREM 500 MG in NS 50 ML IV SCH ×3 (02:46→18:24)
--- NOTE | 2016-12-26 05:23 | EKG Report ---
Test Performed on : 12/25/2016 11:24:56 AM Test Reason : tachycardia Blood Pressure : / mmHG Vent. Rate : 121 BPM Atrial Rate : 121 BPM P-R Int : 150 ms QRS Dur : 110 ms QT Int : 328 ms P-R-T Axes : 035 035 008 degrees QTc Int : 465 ms Sinus tachycardia. Low voltage QRS Right bundle branch block Possible Inferior infarct (cited on or before 20-JUL-2015) Abnormal ECG When compared with ECG of 24-DEC-2016 07:39, (Unconfirmed) RSR' or QR pattern in V1 suggests right ventricular conduction delay with ICRBB present on 12/24/2016 Progression of RBBB noted into V2/V3 when compared to previous Confirmed by Surya De Guzman DO ([id number]) on 12/29/2016 3:10:03 PM
[2016-12-26 06:46] LABS: BASO% 0.1 % (0.0-0.8); EOS# 0.02 X1000 (0.0-0.7); EOS% 0.1 % (0.0-10.0); HEMATOCRIT 38.7 % (42.0-52.0); HEMOGLOBIN 12.9 g/dL (14.0-18.0); IMM GRAN# 0.27 X1000 (0.0-0.04); IMM GRAN% 1.2 % (0.0-0.5); LYMPH# 1.31 X1000 (1.2-3.4); LYMPH% 5.8 % (20.5-51.1); MANUAL DIFF NEEDED? YES; MCH 29.7 PG (27-31); MCHC 33.3 g/dL (33-37); MONO# 6.39 X1000 (0.11-0.59); MONO% 28.1 % (1.7-9.3); MPV 12.5 FL (7.4-10.4); NEUT% 64.7 % (42.2-75.2); PLT 71 X1000 (130-400); RBC 4.35 XMIL (4.7-6.1)
[2016-12-26 06:57] LABS: CALCIUM 8.1 mg/dL (8.8-10.2); POTASSIUM 3.3 mmol/L (3.5-5.1)
[2016-12-26] MEDS: HUMULIN R SUBQ SCH ×4 (06:57→20:11)
[2016-12-26] MEDS: LASIX IV SCH (08:01)
[2016-12-26] MEDS ORDERED: KLOR-CON PO ONE (08:01)
--- NOTE | 2016-12-26 08:07 | Diag Imaging Result Document ---
PROCEDURE NAME: CHEST-PORTABLE - 12/26/2016 PORTABLE CHEST: COMPARISON: 12/24/2016. FINDINGS: The lungs are well expanded. The heart is mildly enlarged. The vessels are not distended. No pneumonia. No pleural effusions identified. No consolidation. IMPRESSION: Stable chest.
[2016-12-26 08:12] LABS: BANDS 6 % (0-1); LYMPHS 6 % (21-51); MONO 20 % (1-9)
[2016-12-26] MEDS: COLCRYS PO SCH ×2 (08:57→20:10)
[2016-12-26] MEDS: PROZAC PO SCH (08:57)
[2016-12-26] MEDS: PEPCID PO SCH (08:57)
[2016-12-26] MEDS: VYTORIN 10/40 MG PO SCH (08:58)
[2016-12-26] MEDS: LOVENOX SUBQ SCH (08:58)
[2016-12-26] MEDS: XOPENEX NEB INH SCH ×2 (09:43→15:34)
--- NOTE | 2016-12-26 17:38 | PROGRESS NOTE ---
DATE: 12/26/2016 SUBJECTIVE: The patient states that he feels a lot better today. He is awake and alert and states that he is feeling a little bit stronger today. He states that his shortness of breath has improved. OBJECTIVE: Vital Signs: Temperature 97, blood pressure 135/76, heart rate 108, respirations 16, O2 saturations 99% on 2 L nasal cannula. General: This is an elderly male, lying in bed, in no acute distress. Head: Normocephalic, atraumatic. Heart: S1, S2. Normal. Tachycardic. Lungs: Clear to auscultation bilaterally. No crackles. No rales. Abdomen: Positive bowel sounds. Soft, nontender, nondistended. Extremities: No edema. No cyanosis. No calf tenderness. Neurologic: The patient is awake and alert. No focal neurologic deficits noted. LABS: White blood cell count 22, hemoglobin 12, hematocrit 38, platelets 71. Sodium 138, potassium 3.3, chloride 99, CO2 of 25, BUN 17, creatinine 1.7, glucose 119. ASSESSMENT AND PLAN: 1. Acute bronchitis versus pneumonia. The chest x-ray does not show evidence of pneumonia. The patient's sputum culture is pending so far. We will continue with antibiotic therapy for now. 2. Leukocytosis. The patient's white blood cell count is back up to 22 today. We will continue on antibiotic therapy and consult with Infectious disease for further recommendations. 3. Pulmonary edema. This appears to have improved. We will discontinue the IV Lasix at this time. 4. Pericardial effusion. The patient has been advised to continue on colchicine for the next 6 weeks. The patient will follow up with Dr. De Guzman in 4-6 weeks for repeat echocardiogram. 5. Constipation. We will start the patient on scheduled laxatives. 6. Chronic thrombocytopenia. Stable. 7. Acute kidney injury on chronic kidney disease stage 3. The patient did receive Lasix and he is currently on colchicine. We will stop the Lasix and observe the patient's urine output and his renal function. 8. Continue with physical therapy.
[2016-12-26] MEDS: AMBIEN PO SCH (20:10)
[2016-12-26] MEDS: KLONOPIN PO SCH (20:10)
[2016-12-26] MEDS: COLACE PO SCH (21:34)
[2016-12-26] MEDS: DULCOLAX PR SCH (21:34)
[2016-12-27] MEDS: XOPENEX NEB INH SCH ×6 (00:05→21:11)
[2016-12-27] MEDS: MERREM 500 MG in NS 50 ML IV SCH ×3 (02:04→18:13)
[2016-12-27] MEDS: HUMULIN R SUBQ SCH ×4 (06:06→20:52)
[2016-12-27 07:09] LABS: MANUAL DIFF NEEDED? NO
[2016-12-27 07:29] LABS: BASO% 0.1 % (0.0-0.8); EOS# 0.05 X1000 (0.0-0.7); EOS% 0.3 % (0.0-10.0); HEMATOCRIT 38.1 % (42.0-52.0); HEMOGLOBIN 12.5 g/dL (14.0-18.0); IMM GRAN# 0.17 X1000 (0.0-0.04); IMM GRAN% 0.9 % (0.0-0.5); LYMPH# 0.72 X1000 (1.2-3.4); LYMPH% 3.8 % (20.5-51.1); MCH 29.5 PG (27-31); MCHC 32.8 g/dL (33-37); MCV 89.9 FL (81-99); MONO% 18.7 % (1.7-9.3); MPV 12.8 FL (7.4-10.4); NEUT% 76.2 % (42.2-75.2); PLT 69 X1000 (130-400); RBC 4.24 XMIL (4.7-6.1)
[2016-12-27 07:59] LABS: CALCIUM 7.7 mg/dL (8.8-10.2); POTASSIUM 3.7 mmol/L (3.5-5.1)
[2016-12-27] MEDS: COLCRYS PO SCH ×2 (09:28→20:09)
[2016-12-27] MEDS: LASIX IV SCH (09:28)
[2016-12-27] MEDS: MIRALAX PO SCH ×2 (09:28→09:30)
[2016-12-27] MEDS: COLACE PO SCH ×2 (09:28→23:03)
[2016-12-27] MEDS: PROZAC PO SCH (09:29)
--- NOTE | 2016-12-27 12:03 | Diag Imaging Result Document ---
PROCEDURE NAME: ABDOMEN/PELVIS W/O CONTRAST - 12/27/2016 CT ABDOMEN AND PELVIS WITHOUT CONTRAST: No contrast administered per request of the referring provider. COMPARISON: There is no comparison CT abdomen and pelvis available. There is a CT bony pelvis dated 09/08/2016 available. FINDINGS: There is a aqfia-io-tucoea amount of pericardial fluid. There is a small left pleural effusion. There is some dependent atelectasis at the inferior left lower lobe lung. The liver is unremarkable. The spleen is upper range of normal in size. The adrenal glands and pancreas are unremarkable. The gallbladder is surgically absent. There is a 1.4 cm low density lesion which arises at the medial lower left kidney and likely represents a cyst. There is no renal stone or hydronephrosis identified. There are no substantially enlarged lymph nodes identified. There are vascular calcifications noted. There are lumbar spine degenerative and postsurgical changes noted. There is a 1 cm sclerotic lesion in the posterior right iliac bone which likely represents bone island. There is no evidence of bowel obstruction. There are a few uncomplicated colonic diverticula. There is no evidence of diverticulitis. There is no substantial bowel wall thickening identified. The appendix is not discretely identified, but there is no pericecal inflammation identified. There is no free air, free fluid, or abscess identified. Images of the pelvis, otherwise, show moderately distended urinary bladder. There are artifacts from metallic left hip prosthesis which limit detail of the lower pelvis. IMPRESSION: 1. Utygh-rh-ueyala pericardial effusion. Small left pleural effusion. 2. No bowel obstruction. Mild colonic diverticulosis. No evidence of diverticulitis. No acute inflammation identified in the abdomen or pelvis. 3. No abscess. No free air. 4. Moderately distended urinary bladder.
--- NOTE | 2016-12-27 12:13 | PROGRESS NOTE ---
DATE: 12/27/2016 SUBJECTIVE: The patient states that he feels a lot better today. He states that his shortness of breath is improved and he did have a bowel movement today. OBJECTIVE: Vital Signs: Temperature 98.3 degrees, blood pressure 130/82, heart rate 102, respirations 15, O2 saturations 100% on 2 L nasal cannula. General: This is an elderly male, lying comfortably in bed, in no acute distress. HEENT: Head normocephalic, atraumatic. Heart: S1, S2. Normal. Tachycardic. Lungs: Clear to auscultation bilaterally. No wheezes, no rales. No rhonchi. Abdomen: Positive bowel sounds. Soft, nontender, nondistended. Extremities: No edema. No cyanosis. No calf tenderness. Neurologic: The patient is alert and oriented. LABS: White blood cell count 18, hemoglobin 12, hematocrit 38, platelets 69,000. Sodium 140, potassium 3.7, chloride 101, CO2 22, BUN 20, creatinine 1.4, glucose 111, calcium 7.7. ASSESSMENT AND PLAN: 1. Acute bronchitis versus pneumonia. The patient's white blood cell count is improved today. We will continue on Merrem. Dr. Alves is following. 2. Acute pulmonary edema. Improved. We will monitor the patient's volume status closely. 3. Leukocytosis. Improved. Continue on IV Merrem. 4. Pericardial effusion. We will continue on colchicine as directed by Dr. De Guzman. The patient will follow up for an echocardiogram as outpatient in 6 weeks for repeat echo. 5. Chronic thrombocytopenia. Stable. 6. Constipation. Continue on scheduled laxatives. 7. Acute kidney injury on chronic kidney disease, stage 3. Improved. We will continue to hold the Lasix. 8. Continue with physical therapy.
--- NOTE | 2016-12-27 13:37 | CONSULTATION ---
DATE OF CONSULTATION: 12/27/2016 CONCLUSION: This 81-year-old gentleman was admitted to the hospital with a syncopal episode. He since then, has been having leukocytosis. It had been increasing and in the last day or 2, it has decreased to 18,000. The patient has been receiving meropenem which may be causing the drop in the white blood cell count. RECOMMENDATIONS: I have ordered a CT scan of the abdomen and pelvis. I have requested it without IV contrast because the patient has elevation of his creatinine to 1.4. DISCUSSION: I was unable to obtain a history from the patient. I am uncertain as to how much the patient knew about his medical illness and therefore, I took most of my history from reviewing the records in the computer. Most of the time when I would ask the patient a question, he would not answer and he was acting as if he was thinking what the answer was, but he never could answer. This patient again, was admitted to the hospital with syncope. He had a nose bleed and he was spitting up blood. He did not have fever or shaking chills. However, his white count has remained elevated. LABORATORY STUDIES: Thus far show a CBC with a white blood cell count of 18,710. Earlier, it had been in the range from 20-22,000. Hemoglobin is 12.5 and the platelet count is 69,000. His blood and urine cultures are negative. Sputum grew a normal vic. On chest x-ray, there were no what appeared to be recent infiltrates. CT did show some chronic microvascular changes in the brain. Patient's creatinine is 1.4. The GFR is 49. PAST MEDICAL HISTORY: Positive for Parkinson disease. Lymphoma involving bone marrow. Leukopenia, type 2 diabetes, questionable episodes of malignant hyperthermia, possible history of transient ischemic attacks. Positive for benign prostatic hypertrophy. Transient ischemic attack. PAST SURGICAL: Patient's past surgical history is positive for a left total hip arthroplasty, back surgery, cholecystectomy and patient has had a transurethral resection of the prostate. The patient had a benign prostatic hypertrophy and cancer of the prostate. SOCIAL HISTORY: Patient denies smoking cigarettes, drinking alcoholic beverages or abusing drugs. He is . He lives in [place]. The patient does have a cat at home as a pet. ALLERGIES: The patient's drug allergies to codeine. HOME MEDICATIONS: Include Klonopin, Sudafed, Vytorin, Pepcid, Neupogen, Prozac, Lasix, Ativan, Lopressor, potassium, Lyrica, Maxalt and Januvia. ASSESSMENT AND PLAN: The plan will be to continue with the patient's current antibiotics and also obtain a CT scan of the abdomen and pelvis. We have elected to not have one with IV contrast because of the patient's elevated creatinine. COMORBIDITIES: The patient's comorbidity includes history of lymphoma, leukemia, integument-no rash noted. Thank you for the consult.
[2016-12-27] MEDS: AMBIEN PO SCH (20:09)
[2016-12-27] MEDS: KLONOPIN PO SCH (20:09)
[2016-12-27] MEDS: LYRICA PO SCH (20:51)
[2016-12-27] MEDS: DULCOLAX PR SCH (23:03)
[2016-12-28] MEDS: MERREM 500 MG in NS 50 ML IV SCH ×3 (03:20→18:40)
[2016-12-28] MEDS: XOPENEX NEB INH SCH ×5 (03:39→21:39)
[2016-12-28 06:34] LABS: BASO% 0.1 % (0.0-0.8); EOS# 0.05 X1000 (0.0-0.7); EOS% 0.4 % (0.0-10.0); HEMATOCRIT 36.7 % (42.0-52.0); HEMOGLOBIN 12.2 g/dL (14.0-18.0); IMM GRAN# 0.08 X1000 (0.0-0.04); IMM GRAN% 0.6 % (0.0-0.5); LYMPH# 1.01 X1000 (1.2-3.4); LYMPH% 7.1 % (20.5-51.1); MANUAL DIFF NEEDED? YES; MCH 29.6 PG (27-31); MCHC 33.2 g/dL (33-37); MCV 89.1 FL (81-99); MONO# 2.94 X1000 (0.11-0.59); MONO% 20.8 % (1.7-9.3); PLT 86 X1000 (130-400); RBC 4.12 XMIL (4.7-6.1)
[2016-12-28] MEDS: HUMULIN R SUBQ SCH ×4 (06:43→23:31)
[2016-12-28 06:55] LABS: LYMPHS 15 % (21-51); MONO 12 % (1-9)
[2016-12-28 06:57] LABS: CALCIUM 7.9 mg/dL (8.8-10.2); POTASSIUM 3.5 mmol/L (3.5-5.1)
[2016-12-28] MEDS: PROZAC PO SCH (10:09)
[2016-12-28] MEDS: MIRALAX PO SCH (10:09)
[2016-12-28] MEDS: PEPCID PO SCH (10:09)
[2016-12-28] MEDS: LASIX IV SCH (10:09)
[2016-12-28] MEDS: COLACE PO SCH ×2 (10:09→23:24)
[2016-12-28] MEDS: VYTORIN 10/40 MG PO SCH (10:10)
[2016-12-28] MEDS: LYRICA PO SCH ×2 (10:10→23:28)
[2016-12-28] MEDS: COLCRYS PO SCH ×2 (10:10→23:25)
--- NOTE | 2016-12-28 14:25 | PROGRESS NOTE ---
DATE: 12/28/2016 SUBJECTIVE: The patient is resting comfortably in bed. He states that he feels good today. No acute events noted overnight. OBJECTIVE: Vital Signs: Temperature 98 degrees, blood pressure 131/59, heart rate 74, respirations 16, O2 saturations 97% on 3 L nasal cannula. General: This is an elderly male, lying in bed, in no acute distress. Head: Normocephalic, atraumatic. Heart: S1, S2. Normal. Regular rate and rhythm. Lungs: Clear to auscultation bilaterally. No wheezes, no rales. No rhonchi. Abdomen: Positive bowel sounds. Soft, nontender, nondistended. Extremities: No edema. No cyanosis. LABS: White blood cell count 14, hemoglobin 12, hematocrit 36, platelets 86,000. Sodium 142, potassium 3.5, chloride 103, CO2 25, BUN 19, creatinine 1.3, glucose 106. ASSESSMENT AND PLAN: 1. Acute bronchitis versus pneumonia. Continue on the IV antibiotic therapy. The patient's leukocytosis has been improving daily with the current regimen. 2. Acute pulmonary edema. Resolved. 3. Pericardial effusion. The patient will continue on colchicine. The patient will follow up with Dr. De Guzman in 6 weeks for repeat echocardiogram. 4. Chronic thrombocytopenia. Stable. 5. Leukocytosis. Improved. 6. Constipation. Continue on scheduled laxatives. 7. Stage 3 chronic kidney disease. Improved. Will continue to monitor this closely. 8. Deep vein thrombosis prophylaxis. No anticoagulants are being given at this time because the patient is thrombocytopenic. 9. Continue with physical therapy. 10. Disposition. The patient should be stable for discharge home on Friday.
[2016-12-28] MEDS: DULCOLAX PR SCH (23:26)
[2016-12-28] MEDS: AMBIEN PO SCH (23:28)
[2016-12-28] MEDS: KLONOPIN PO SCH (23:28)
[2016-12-29] MEDS: MERREM 500 MG in NS 50 ML IV SCH ×3 (01:55→21:31)
[2016-12-29] MEDS: XOPENEX NEB INH SCH ×4 (03:04→20:45)
[2016-12-29] MEDS: HUMULIN R SUBQ SCH ×4 (06:02→21:55)
[2016-12-29 06:44] LABS: BASO% 0.1 % (0.0-0.8); EOS# 0.03 X1000 (0.0-0.7); EOS% 0.3 % (0.0-10.0); HEMATOCRIT 37.7 % (42.0-52.0); HEMOGLOBIN 12.4 g/dL (14.0-18.0); IMM GRAN# 0.05 X1000 (0.0-0.04); IMM GRAN% 0.5 % (0.0-0.5); LYMPH# 1.07 X1000 (1.2-3.4); LYMPH% 10.9 % (20.5-51.1); MANUAL DIFF NEEDED? YES; MCH 29.6 PG (27-31); MCHC 32.9 g/dL (33-37); MONO# 2.41 X1000 (0.11-0.59); MONO% 24.4 % (1.7-9.3); MPV 12.6 FL (7.4-10.4); NEUT% 63.8 % (42.2-75.2); PLT 89 X1000 (130-400); RBC 4.19 XMIL (4.7-6.1)
[2016-12-29 06:55] LABS: CALCIUM 8.3 mg/dL (8.8-10.2); POTASSIUM 3.7 mmol/L (3.5-5.1)
[2016-12-29 07:02] LABS: EOS 1 % (1-10); LYMPHS 10 % (21-51); MONO 14 % (1-9)
[2016-12-29] MEDS: LASIX IV SCH (09:49)
[2016-12-29] MEDS: COLACE PO SCH ×2 (09:49→21:55)
[2016-12-29] MEDS: COLCRYS PO SCH ×2 (09:49→21:29)
[2016-12-29] MEDS: MIRALAX PO SCH (09:50)
[2016-12-29] MEDS: PROZAC PO SCH (09:50)
[2016-12-29] MEDS: LYRICA PO SCH ×2 (09:57→21:29)
--- NOTE | 2016-12-29 17:10 | PROGRESS NOTE ---
DATE: 12/29/2016 SUBJECTIVE: The patient is sitting up in bed. He states that he feels a lot better today. No acute events noted overnight. He is having bowel movements. OBJECTIVE: Vital Signs: Temperature 97 degrees, blood pressure 136/85, heart rate 84, respirations 18, O2 saturations 98% on 3 L nasal cannula. General: This is an elderly male, lying in bed, in no acute distress. Head: Normocephalic, atraumatic. Heart: S1, S2 normal. Regular rate and rhythm. Lungs: Clear to auscultation bilaterally. No wheezes, no rales, no rhonchi. Abdomen: Positive bowel sounds. Soft, nontender, nondistended. Extremities: No edema. No cyanosis. No calf tenderness. Neurologic: The patient is alert oriented x3. LABS: White blood cell count 9.8, hemoglobin 12, hematocrit 37, platelets 89,000. Sodium 141, potassium 3.7, chloride 101, CO2 28, BUN 22, creatinine 1.4, glucose 113. ASSESSMENT AND PLAN: 1. Pneumonia. Improved. The patient's white blood cell count is now normal. The patient states that he does have home oxygen already. The patient should be stable to be switched to oral antibiotics tomorrow. 2. Acute pulmonary edema. Resolved. 3. Pericardial effusion. Continue on colchicine. The patient will follow up with Dr. De Guzman in 6 weeks for repeat echocardiogram. 4. Chronic thrombocytopenia. Stable. 5. Constipation. Resolved. Continue on scheduled laxatives. 6. Stage 3 chronic kidney disease. Stable. 7. Deep vein thrombosis prophylaxis. The patient is not on any anticoagulation due to chronic thrombocytopenia. DISPOSITION: The patient should be able to be discharged home tomorrow.
[2016-12-29] MEDS: AMBIEN PO SCH (21:29)
[2016-12-29] MEDS: KLONOPIN PO SCH (21:29)
[2016-12-29] MEDS: DULCOLAX PR SCH (21:56)
[2016-12-30] MEDS: XOPENEX NEB INH SCH ×2 (04:02→09:48)
[2016-12-30] MEDS: MERREM 500 MG in NS 50 ML IV SCH ×2 (04:31→10:38)
[2016-12-30] MEDS: HUMULIN R SUBQ SCH ×2 (06:03→10:42)
[2016-12-30 06:14] LABS: BASO% 0.1 % (0.0-0.8); EOS# 0.03 X1000 (0.0-0.7); EOS% 0.4 % (0.0-10.0); HEMATOCRIT 36.1 % (42.0-52.0); HEMOGLOBIN 12.1 g/dL (14.0-18.0); IMM GRAN# 0.04 X1000 (0.0-0.04); IMM GRAN% 0.6 % (0.0-0.5); LYMPH# 1.07 X1000 (1.2-3.4); LYMPH% 15.4 % (20.5-51.1); MANUAL DIFF NEEDED? YES; MCHC 33.5 g/dL (33-37); MCV 89.4 FL (81-99); MONO# 1.87 X1000 (0.11-0.59); MONO% 26.8 % (1.7-9.3); MPV 12.5 FL (7.4-10.4); NEUT% 56.7 % (42.2-75.2); PLT 92 X1000 (130-400); RBC 4.04 XMIL (4.7-6.1)
[2016-12-30 07:03] LABS: CALCIUM 7.7 mg/dL (8.8-10.2); POTASSIUM 3.7 mmol/L (3.5-5.1)
[2016-12-30 07:28] LABS: BANDS 4 % (0-1); EOS 2 % (1-10); LYMPHS 14 % (21-51); MONO 16 % (1-9)
[2016-12-30 07:38] VITALS: BP 125/89
--- NOTE | 2016-12-30 08:15 | Carotid Study ---
DATE: 12/24/2016 PROCEDURE: Carotid duplex imaging. REFERRING PHYSICIAN: Alix Da Silva MD. INTERPRETING PHYSICIAN: Milo Cristobal MD. TECH: [place]. INDICATIONS: Syncope and altered mental status. STUDY: Bilateral carotid ultrasound. TECHNIQUE: Bilateral duplex and color flow imaging of the carotid arteries was performed using a Ways[employer] E9 ultrasound system with a 9L-D transducer. Diagram of ultrasound images are as follows: OBSERVED DATA RIGHT LEFT Brachial Blood Pressure Carotid Pulse Bruits: Carotid/Sub DIAGRAM OF ULTRASOUND IMAGING R L RIGHT INT EXT INT EXT LEFT Mendoza (cm/s) Mendoza (cm/s) Subclavian 60/0 Subclavian 88/0 CCA Proximal 94/22 CCA Proximal 99/32 CCA Distal 84/24 CCA Distal 87/25 Bulb 84/17 Bulb 78/20 ICA Proximal 53/13 ICA Proximal 47/14 ICA Mid 70/24 ICA Mid 72/28 ICA Distal 86/27 ICA Distal 79/33 ECA 69/10 ECA 49/14 Vertebral 70/19 antegrade flow Vertebral 43/12 antegrade kelsy ICA/CCA Ratio 0.92 ICA/CCA Ratio 0.80 % Stenosis 0%-39% % Stenosis 0%-39% FINDING: Minimal atherosclerosis at this time does not produce a hemodynamically significant flow limiting stenosis to either carotid artery. Both vertebral arteries are antegrade flow. PHYSICIAN INTERPRETATION: No hemodynamically significant flow limiting stenosis noted on this study to bilateral carotid artery systems. Both vertebral arteries are antegrade flow.
[2016-12-30] MEDS: COLCRYS PO SCH (10:38)
[2016-12-30] MEDS: LYRICA PO SCH (10:38)
[2016-12-30] MEDS: PEPCID PO SCH (10:38)
[2016-12-30] MEDS: PROZAC PO SCH (10:38)
[2016-12-30] MEDS: VYTORIN 10/40 MG PO SCH (10:39)
[2016-12-30] MEDS: LASIX IV SCH ×2 (10:39→10:51)
[2016-12-30] MEDS: MIRALAX PO SCH (10:40)
[2016-12-30] MEDS: COLACE PO SCH (10:41)
--- NOTE | 2016-12-31 10:34 | DISCHARGE SUMMARY ---
ADMISSION DATE: 12/24/2016 DISCHARGE DATE: 12/30/2016 PRIMARY CARE PHYSICIAN: Dr. Surya De Guzman. DISCHARGE DIAGNOSES: 1. Mild pericardial effusion. 2. Community-acquired pneumonia. 3. Chronic thrombocytopenia. 4. Stage 3 chronic kidney disease. 5. Anxiety disorder. 6. Hyperlipidemia. 7. Diabetes type 2. 8. Chronic constipation. 9. History of migraine. 10. Hypothyroidism. DISCHARGE MEDICATIONS: 1. Colchicine 0.6 mg b.i.d. 2. Levaquin 750, one tablet p.o. daily for 5 days. 3. MiraLAX 17 g daily. 4. Klonopin 1 mg p.o. at bedtime. 5. Prozac 20 mg p.o. daily. 6. KCL 10 mEq p.o. daily. 7. Sitagliptin/metformin 1 tablet p.o. daily, 50/500. 8. Lasix 40 mg p.o. daily. 9. Lorazepam 1 mg p.o. t.i.d. 10. Lopressor 25 mg p.o. daily. 11. Lyrica 150 mg p.o. b.i.d. 12. Pepcid 20 mg p.o. daily. 13. Rescon 1 dose p.o. daily. 14. Maxalt 10 mg p.o. p.r.n. for migraine. 15. Vytorin 10/40 p.o. every other day. 16. Neupogen as directed. 17. Ambien 10 mg p.o. at bedtime. CONSULTATION: 1. Cardiology was consulted for pleural effusion. 2. Oncology was consulted for lymphoma. 3. Infectious Disease was consulted for questionable pneumonia. SIGNIFICANT LABORATORY AND IMAGING: CAT scan of the abdomen and pelvic essentially negative for any evidence of infections or abscesses. Carotid Doppler: No significant stenosis. Pulmonary angiogram: No PE. Cardiomegaly with moderate size of pleural effusion with bilateral pleural effusion with dependent atelectasis. CT of the brain. Chronic microvascular changes. No evidence of acute disease. HOSPITAL COURSE: The patient is an 81-year-old, white male, admitted to the hospital for syncope. He has a longstanding history of Parkinson's and lymphoma with leukopenia as well as type 2 diabetes. He presented to the hospital with syncope. The patient's initial CAT scan was negative for any acute process. He had a CT angiogram of the chest which was negative for PE. The initial x-ray showed mild prominent heart. No evidence of infection. Cultures have remained negative after 5 days. The patient been on meropenem for acute bronchitis. WE will continue the patient on Levaquin for the next 5 days for his bronchitis. He has not had any recurrent syncope episode in the hospital. His telemetry has remained negative thus far. Dr. Julio De Guzman initiated twice a day for his pericardial effusions which he thinks is reactive from a pneumonia. I advised the patient to follow up for another echo in 4-6 weeks. The patient is, otherwise, doing well. He is ready to go home. At discharge, his vital signs revealed blood pressure 125/89, pulse 86, respiration 20, temperature of 98.1 degrees, saturation of 96% on room air. General Appearance: Thin white male in no acute distress. HEENT anicteric. Clear conjunctivae. Neck is supple. No JVD. No bruit. Cardiovascular: S1, S2. Normal rate and rhythm. No murmur, rubs, or gallops. Pulmonary clear to auscultation bilaterally. GI soft, nontender, nondistended. Normoactive bowel sounds. Musculoskeletal: No clubbing, cyanosis, or edema. PLAN: We will discharge the patient home. CONDITION: Stable and improving. ACTIVITY: As tolerated. FOLLOWUP: The patient can follow up with his PCP in 5-7 days. TOTAL TIME SPENT DISCHARGING THIS PATIENT: 45 minutes.
--- NOTE | 2017-01-28 20:06 | DISCHARGE SUMMARY ---
ADMISSION DATE: 12/24/2016 DISCHARGE DATE: 12/30/2016 DISCHARGE SUMMARY ADDENDUM: The patient did have acute on chronic diastolic heart failure. MTDD
== END 2016-12-30 14:33 | disposition home or self-care (01) | DRG 193 ==
LOC: EDBD → ED 07:33 → EDIPHOLD 15:46 → 4N 18:44 → EDIPHOLD 23:06 → 3N 12-25 02:49
PROVIDERS: ADMIT Internal Medicine; ATTEND Internal Medicine
DX: J18.9 Pneumonia, unspecified organism (principal); I50.33 Acute on chronic diastolic (congestive) heart failure; J81.0 Acute pulmonary edema; I31.3 Pericardial effusion (noninflammatory); D69.6 Thrombocytopenia, unspecified; E11.22 Type 2 diabetes mellitus with diabetic chronic kidney disease; N18.3 Chronic kidney disease, stage 3 (moderate); I13.0 Hypertensive heart and chronic kidney disease with heart failure and stage 1 through stage 4 chronic kidney disease, or unspecified chronic kidney disease; E11.40 Type 2 diabetes mellitus with diabetic neuropathy, unspecified; J20.9 Acute bronchitis, unspecified; G20 Parkinson's disease; Z99.81 Dependence on supplemental oxygen; I10 Essential (primary) hypertension; F41.9 Anxiety disorder, unspecified; R79.1 Abnormal coagulation profile; Z79.899 Other long term (current) drug therapy; Z79.84 Long term (current) use of oral hypoglycemic drugs; Z85.72 Personal history of non-Hodgkin lymphomas; Z96.642 Presence of left artificial hip joint; D72.829 Elevated white blood cell count, unspecified; D50.9 Iron deficiency anemia, unspecified; K59.00 Constipation, unspecified; N40.0 Benign prostatic hyperplasia without lower urinary tract symptoms; Z86.73 Personal history of transient ischemic attack (TIA), and cerebral infarction without residual deficits
CPT/HCPCS: 70450; 71010; 71020; 71275; 74176; 80048; 80053; 81001; 82550; 82570; 82607; 82728; 82746; 82805; 82948; 83036; 83540; 83550; 83605; 83735; 83880; 83935; 84300; 84439; 84443; 84484; 85025; 85379; 85610; 85730; 87040; 87070; 87088; 87205; 87804; 93005; 93010; 93306; 93880; 94640; 94761; 96365; 96366; 96367; J0696; J1650; J1940; J2185; Q9967; 97116-GP; 97530-GP

== ENCOUNTER 2017-01-31 16:36 | Emergency (ER) | payer OTHER ==
[2017-01-31] MEDS ORDERED: TYLENOL PO ONE (17:09)
--- NOTE | 2017-01-31 17:15 | PROVIDER DOCUMENTATION ---
HPI-Musculoskeletal Pain/Inj - GENERAL Chief Complaint: Fall Stated Complaint: FALL @ 1557 Time Seen by Provider: 01/31/17 16:49 Source: patient, family - HX OF PRESENT ILLNESS-MUSKULOSKELTAL Nature of Presenting Problem: 81 year old WM presents with c/o left flank, left lower rib tenderness. onset 30 min [employer]. pt/family report pt had just gotten up from a nap and was somewhat "groggy". 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 he used the arm of a chair to stabilize himself and the chair turned and he fell striking his left flank region to a wooden box. pt denies LOC, head, neck, spinal tenderness. pt has been ambulatory since the event, denies any complaints prior to fall. Quality of Pain: reports: aching, dull Severity in ED: mild Onset/Duration: just prior to arrival Timing: still present, constant Modifying Factors: improves with: nothing Any recent injury?: Yes Locality of Occurance: Home Similar Symptoms Previously?: No Recently seen or treated by another doctor?: No - FALL INJURY Location of Pain/Injury: reports: back (left flank). denies: head, face, mouth , neck, chest, upper extremity, hand(s), abdomen, pelvis, genitalia, lower extremity, feet, upper body, lower body, generalized Pain Radiation: reports: no radiation Reason for Fall: reports: other (see HPI). denies: fainted, lightheaded, lost balance, slipped, tripped Symptoms prior to fall:: reports: none. denies: fever/chills/sweaty, chest pain , rapid heart rate, cough, diarrhea, vomiting, GI bleed, dizzy/lightheaded, headache, seizure Loss of Consciousness: no loss of consciousness Injury Associated Symptoms: reports: back/neck pain (left flank). denies: arm pain, chest pain, diaphoresis, dizziness, headaches, joint pain, muscle aches, nausea, puncture wound, shortness of breath, sensory/motor loss, snap/crack/pop sensation, pain with inspiration, unable to bear weight, vomiting, weakness, trouble walking - BACK & NECK PAIN/INJURY Back/Neck Pain Location: denies: C-spine, T-spine, lumbar spine, sacrum, coccyx , paraspinous muscles Back/Neck Pain Radiation: denies: headache, shoulders, arm(s), Buttocks, Upper Legs, Lower Legs, Feet Front/Back of Body, Lg ([place]): 1 - tenderness, no ecchymosis, crepitus. Context / Method of Injury: reports: direct blow, fall, twisted. denies: lifting, motor vehicle crash, overuse, prior injury Associated Symptoms: reports: denies symptoms. denies: loss of bladder control , loss of bowel control, fever, lower back pain, muscle spasms, numbness in legs /feet, numbness in upper ext, sensory/motor loss, tingling in legs/feet, tingling in upper ext, weakness in legs/feet, weakness in upper ext History of Chronic Neck or Back Pain?: No - TRUNK INJURY Location of Injury(s)/Pain: reports: ribs (left flank/left lower ribs). denies : chest, abdomen, pelvis, extends to back, generalized Context / Method of Injury: reports: fall. denies: blunt force, incision, stabbing, burn, GSW, seizure, became dizzy/fainted, MVC, recent physical stress , recent trauma history Associated Symptoms: reports: back/neck pain. denies: anxiety, arm pain, chest pain, nausea/vomiting, shortness of breath, sensory/motor loss, pain with breathing Review of Systems - Adult - REVIEW OF SYSTEMS - ADULT Constitutional: reports: no symptoms reported. denies: chills, fever, fatique Eyes: reports: no symptoms reported. denies: discharge, blurred vision, double vision, redness Ears, Nose, Mouth & Throat: reports: no symptoms reported. denies: ear discharge, ear pain, nose pain, loose teeth, throat pain, throat swelling Cardiovascular: reports: no symptoms reported. denies: chest pain, edema, heart murmur, irregular heart rate, orthopnea, palpitations, poor circulation, syncope Respiratory: reports: no symptoms reported. denies: chronic cough, cough, dyspnea on exertion, excessive sputum production, hemoptysis, pleurisy, shortness of breath, wheezing Gastrointestinal: reports: no symptoms reported. denies: abdominal pain, diarrhea, nausea, vomiting Genitourinary: reports: see HPI, flank pain, frequent UTI's. denies: urgency Musculoskeletal: reports: see HPI, other (left lower ribpain, left flank tenderness) Integumentary: reports: no symptoms reported. denies: hives, itching, rash, skin sores/ulcer Neurological: reports: no symptoms reported. denies: ataxia, dizziness/vertigo , headache/migraines, loss of balance, numbness, paresthesia, seizure, slurred speech, syncope, tremors Psychiatric: reports: no symptoms reported Endocrine: reports: no symptoms reported Hematologic/Lymphatic: reports: no symptoms reported Allergic/Immunologic: reports: no symptoms reported All Other Systems: Reviewed and Negative Past History - Adult - PAST MEDICAL HISTORY-ADULT Review of Records: reports: Old Records Reviewed, Nursing Assessment Review, Medications Reviewed, Social history reviewed & non-contributory. Major Childhood Illnesses: reports: denies history Cardiovascular: reports: HTN Respiratory: reports: denies history Gastrointestinal: reports: denies history Obstetrical/Gynecological: reports: denies history Genitourinary: reports: denies history Musculoskeletal: reports: denies history Neurological: reports: Parkinson's, other (neuropathy) Psychiatric: reports: anxiety Endocrine/Immune: reports: Diabetes, other (neutrapena) Other Conditions: reports: denies history - PRIOR SURGERIES/PROCEDURES Surgical/Procedure History: reports: cholecystectomy, other (TURP) - IMMUNIZATION STATUS Childhood Immunizations: See Nurse Assessment Flu Vaccine: See Nurse Assessment - FAMILY HISTORY Family History: reviewed, not pertinent - SOCIAL HISTORY Smoking: denies, non-smoker Substance Use: none/never Alcohol Use Frequency: never Physical Exam-Injury Related - Physical Exam-Injury Related Initial Vital Signs Reviewed: Yes General Appearance: appears well, alert, no apparent distress. negative: mild distress, moderate distress, severe distress, lethargic, slow to respond, obtunded, combative Eyes: pink conjunctivae. negative: conjuctival exudate, pale conjunctivae, photophobia, sclera injected, scleral icterus, subconjunctival hemorrhage Head, Ears, Nose, Mouth & Throat: normocephalic/atraumatic, moist mucous membranes, normal ENT inspection Neck: non-tender, full range of motion, supple, normal inspection. negative: C- spine tenderness, decresed ROM, ecchymosis, limited range of motion, pain on movement, tender lateral, tender midline, vertebral point tenderness Respiratory: chest non-tender, lungs clear, normal breath sounds, no pleuratic chest pain, no respiratory distress, no accessory muscle use, rib tenderness ( left lower rib pain). negative: respiratory distress, decreased breath sounds, accessory muscle use, crackles, rales, rhonchi, stridor, wheezing, prolonged expiration, pain on inspiration, decreased rate, increased rate, crepitus, ecchymosis, flail chest, palpable fracture, paradoxical movements, seat belt bruising, tenderness Cardiovascular: normal peripheral pulses, regular rate, rhythm, no edema, no gallop Chest/Breast: deferred Peripheral Pulses: radial (R): 3+, radial (L): 3+, dorsalis-pedis (R): 3+, dorsalis-pedis (L): 3+ Abdominal Exam: normal bowel sounds, non tender, soft, no organomegaly. negative: distended, guarding, rigid, rebound, tenderness, McBurney's point tenderness, Arcos's sign, obturator sign, psoas, Rovsing's sign Male Genitalia: deferred Rectal Exam: deferred Hemoccult Exam: deferred Lymphatic: no adenopathy Back Exam: normal inspection, no vertebral tenderness, CVA tenderness (left), kyphosis, lordosis. negative: no CVA tenderness, decreased range of motion, ecchymosis, muscle spasm, scoliosis, swelling, vertebral tenderness Extremity: normal range of motion, non-tender, normal gait, normal inspection, no pedal edema, no calf tenderness, normal capillary refill. negative: deformity, erythema, inflammation, joint effusion, slow capillary refill, swelling, tenderness Integumentary: normal color, warm/dry. negative: ecchymosis, pallor, petechiae , purpura, rash, swelling, tenderness, warm Neurologic: grossly normal, no motor/sensory deficits. negative: focal weakness , motor weakness, sensory deficit Psych/Mental Status: normal mood/affect, normal thought content, normal thought process, oriented x 3 - Glascow Coma Score Best Eye Response ([place]): (4) open spontaneously Best Verbal Response ([place]): (5) oriented Best Motor Response ([place]mel): (6) obeys commands [place]mel Total: 15 Progress - PLAN OF CARE/RESULTS Progress/Plan/Lab Results: Laboratory Tests 01/31/17 01/31/17 01/31/17 18:14 18:14 19:10 WBC 15.95 H RBC 3.59 L Hgb 10.5 L Hct 32.6 L MCV 90.8 MCH 29.2 MCHC 32.2 L RDW Std Deviation 15.5 H Plt Count 74 L MPV 12.5 H Immature Gran % (Auto) 2.1 H Neut % (Auto) 74.7 Lymph % (Auto) 7.3 L [place] % (Auto) 15.7 H Eos % (Auto) 0.1 Baso % (Auto) 0.1 Immature Gran # (Auto) 0.33 H Neut # (Auto) 11.91 H Lymph # (Auto) 1.17 L [place] # (Auto) 2.51 H Eos # (Auto) 0.02 Baso # (Auto) 0.01 Sodium 141 Potassium 3.6 Chloride 101 Carbon Dioxide 27 Anion Gap 13 BUN 10 Creatinine 1.2 Estimated GFR/1.73 m2 58 BUN/Creatinine Ratio 8 Glucose 83 Calculated Osmolality 279 Calcium 8.0 L Total Bilirubin 0.40 AST 13 ALT 11 Alkaline Phosphatase 124 H Total Protein 7.1 Albumin 3.3 L Globulin 3.8 Albumin/Globulin Ratio 0.9 Amylase 65 Lipase 28 Urine Source CLEAN CATCH Urine Color YELLOW Urine Turbidity HAZY Urine pH 5.5 Ur Specific [place] 1.021 Urine Protein 50 A Ur Glucose (Stick) NEGATIVE Ur Ketones (Stick) NEGATIVE Urine Blood LARGE A Urine Nitrite NEGATIVE Urine Bilirubin NEGATIVE Urobilinogen Dipstick NORMAL Urine Leukocytes NEGATIVE Urine WBC (Auto) <10 Urine RBC (Auto) TNTC A U Epithel Cells (Auto) <10 Urine Bacteria (Auto) NEGATIVE Urine Crystals NONE SEEN Small Round Cells NONE SEEN Urine Casts NONE SEEN Urine Yeast-like Cells NONE SEEN Orders Category Date Time Status Saline Loc DIRECTED Care 01/31/17 17:04 Active NPO Diet 01/31/17 17:04 Active ABDOMEN/PELVIS W/O CONTRAST [CT] Stat Exams 01/31/17 17:07 Draft cxr [CHEST-2 VIEWS] [RAD] Stat Exams 01/31/17 17:04 Completed AMYLASE [CHEM] Stat Lab 01/31/17 18:14 Completed CBC WITH ELECTRONIC DIFF [HEME] Stat Lab 01/31/17 18:14 Completed COMPREHENSIVE METABOLIC PANEL [CHEM] Stat Lab 01/31/17 18:14 Completed LIPASE [CHEM] Stat Lab 01/31/17 18:14 Completed URINALYSIS W/POSS RFLX CULT [URINALYSIS] Stat Lab 01/31/17 19:10 Completed URINE MANUAL MICROSCOPIC [URINALYSIS] Stat Lab 01/31/17 19:10 Completed Acetaminophen [Tylenol] Med 01/31/17 17:09 Discontinued 650 mg PO NOW ONE Vital Signs - 24 hr 01/31/17 16:40 Temperature 97.7 F Pulse Rate 93 H Respiratory 18 Rate Blood Pressure 125/72 O2 Sat by Pulse 96 Oximetry Reviewed radiology, labs and urinalysis with Dr. Hooks, agrees with plan of care and treatment. Spent time family emphasizing the need for pulmonary toilet, use of IS at home and continue his rehabilitation. Pt and family verbalized understanding. Pt refused pain medications, stating they all cause itching. Instructed pt to take tylenol. - REASSESSMENT Reassessment #1 Time Reassessed: 20:02 Status: improving (pt denies pain at this time.) - XRAY 1 XRAY Study: Chest Impression: Normal Comparison with other Films: no changes - CT/MRI 1 CT Study: Abdomen, Pelvis Impression: Abnormal (11th rib fracture, T12, L1, L2 with left tranverses processes, additional findings in full report by Dr. Calvillo.) Departure - Departure Time of Disposition Order: 20:02 DIAGNOSIS: Fall, Rib fracture, Hematuria, Left flank pain Disposition: HOME 01 Certified Medical Emergency: Emergent Condition: Stable Additional Instructions: Follow up with Dr. Nelson on Friday for the blood in your urine (hematuria). Follow up with Dr. Kwok or an orthopedic surgeon of your choice for evaluation of your spinal fractures. Return immediately for any new or concerning symptoms. ED Follow Up Instructions: You have been treated by a care provider in the Emergency Department. These instructions are being provided to you so you can have an understanding of how to care for yourself upon discharge. Upon discharge from the Emergency Department, you are responsible for making arrangements for follow-up care by a physician of your choice. Take all prescribed medications as directed. Return to the Emergency Department immediately for any new or worsening symptoms. You may call the Physician Referral phone number at [phone] to obtain a list of Physicians who are taking new patients. Referrals: Surya De Guzman DO [Primary Care Provider] - Noe Nelson DO [STAFF PHYSICIAN] - John Paul Kwok MD [STAFF PHYSICIAN] - Instructions: Rib Fracture, Fall Prevention in Hospitals, Adult, Hematuria, Adult Attestation - Physician/ MANDEEP Attestation Patient care was provided by Advanced Practice Provider:: Yes Advanced Practice Provider:: Karel Wong Advanced Practice Provider documentation review:: The Mid-level provider documentation, treatment plan and medical decision making was reviewed by the physician who agrees with all treatment and medical decision making by the MLP.
--- NOTE | 2017-01-31 18:09 | Diag Imaging Result Document ---
PROCEDURE NAME: CHEST-2 VIEWS - 01/31/2017 CHEST 2 VIEWS: COMPARISON: Compared with 12/26/2016 and 12/24/2016. FINDINGS: Heart size appears upper normal and stable. There is subsegmental atelectasis at the left lung base. There is a small left pleural effusion. The remainder of the lungs appear essentially clear. There is no pneumothorax identified. There is thoracic spondylosis noted. IMPRESSION: 1. Mild left basilar atelectasis. 2. Small left pleural effusion. 3. No evidence of pneumothorax.
[2017-01-31 18:21] LABS: MANUAL DIFF NEEDED? NO
[2017-01-31 18:25] LABS: BASO% 0.1 % (0.0-0.8); EOS# 0.02 X1000 (0.0-0.7); EOS% 0.1 % (0.0-10.0); HEMATOCRIT 32.6 % (42.0-52.0); HEMOGLOBIN 10.5 g/dL (14.0-18.0); IMM GRAN# 0.33 X1000 (0.0-0.04); IMM GRAN% 2.1 % (0.0-0.5); LYMPH# 1.17 X1000 (1.2-3.4); LYMPH% 7.3 % (20.5-51.1); MCH 29.2 PG (27-31); MCHC 32.2 g/dL (33-37); MCV 90.8 FL (81-99); MONO# 2.51 X1000 (0.11-0.59); MONO% 15.7 % (1.7-9.3); MPV 12.5 FL (7.4-10.4); NEUT% 74.7 % (42.2-75.2); PLT 74 X1000 (130-400); RBC 3.59 XMIL (4.7-6.1)
--- NOTE | 2017-01-31 18:34 | Diag Imaging Result Document ---
PROCEDURE NAME: ABDOMEN/PELVIS W/O CONTRAST - 01/31/2017 CT ABDOMEN AND PELVIS WITHOUT CONTRAST: FINDINGS: No contrast administered per request of the referring provider. A dose reduction protocol was used. Compared with 12/27/2016. There is a small left pleural effusion. There is some dependent atelectasis at the bilateral lung bases. There is limitation of detail due to the lack of administered intravenous contrast. There is no obvious injury of the liver, spleen, adrenal glands, pancreas, or kidneys identified. There is no free fluid identified. There is no peritoneal or retroperitoneal hematoma identified. The gallbladder is surgically absent. There is no evidence of bowel obstruction. There is no substantial bowel wall thickening identified. There is no abscess identified. There is no free air. Images of the pelvis show no evidence of hematoma or free fluid. There are artifacts from metallic left hip prosthesis which limit detail in the nearby pelvis. There is a fracture of the posterior left 11th rib. There are fractures of the left transverse processes of T12, L1, and L2. There are degenerative changes noted at the visualized lower thoracic and lumbar spine. IMPRESSION: 1. Fracture posterior left 11th rib. 2. Fractures of left transverse processes of T12, L1, and L2. 3. Small left pleural effusion. 4. No obvious injury to the abdomen or pelvis.
[2017-01-31 19:03] LABS: ALBUMIN 3.3 g/dL (3.5-5.0); POTASSIUM 3.6 mmol/L (3.5-5.1); TOTAL BILIRUBIN 0.4 mg/dL (0.20-1.00); TOTAL PROTEIN 7.1 g/dL (6.3-8.3)
[2017-01-31 19:23] LABS: URINE CULTURE NEEDED? NO; URINE SOURCE CLEAN CATCH
[2017-01-31 19:37] LABS: BILIRUBIN URINE NEGATIVE (NEGATIVE); BLOOD URINE LARGE (NEGATIVE); COLOR YELLOW; GLUCOSE URINE NEGATIVE (NEGATIVE); LEUKOCYTES URINE NEGATIVE (NEGATIVE); NITRITE URINE NEGATIVE (NEGATIVE); PH URINE 5.5; PROTEIN URINE 50 mg/dL (NEGATIVE); SP GRAVITY URINE 1.021; TURBIDITY URINE HAZY (CLEAR); UROBILINOGEN URINE NORMAL (NORMAL)
[2017-01-31 19:38] LABS: URINE MICRO REVIEW NEEDED? YES
[2017-01-31 19:49] LABS: UR EPITHELIAL CELLS <10 /HPF (<10); URINE BACTERIA NEGATIVE /HPF; URINE RBC TNTC /HPF (<10); URINE WBC <10 /HPF (<10)
[2017-01-31 19:59] LABS: URINE CASTS NONE SEEN; URINE CRYSTALS NONE SEEN; URINE SMALL ROUND CELLS NONE SEEN
[2017-01-31 20:28] VITALS: BP 158/81
== END 2017-01-31 20:35 | disposition home or self-care (01) ==
LOC: ED 16:36
DX: S22.32XA Fracture of one rib, left side, initial encounter for closed fracture (principal); R31.9 Hematuria, unspecified; R10.9 Unspecified abdominal pain; S22.089A Unspecified fracture of T11-T12 vertebra, initial encounter for closed fracture; S32.019A Unspecified fracture of first lumbar vertebra, initial encounter for closed fracture; S32.029A Unspecified fracture of second lumbar vertebra, initial encounter for closed fracture; J90 Pleural effusion, not elsewhere classified; R07.81 Pleurodynia; R10.819 Abdominal tenderness, unspecified site; M54.9 Dorsalgia, unspecified; I10 Essential (primary) hypertension; E11.9 Type 2 diabetes mellitus without complications; Z87.440 Personal history of urinary (tract) infections; W18.30XA Fall on same level, unspecified, initial encounter; W22.8XXA Striking against or struck by other objects, initial encounter
CPT/HCPCS: 71020; 74176; 80053; 81001; 82150; 83690; 85025